=== PATIENT | male | born 1965 | race Caucasian/White ===

== ENCOUNTER 2017-02-17 06:37 | Observation (INO) | payer OTHER ==
--- NOTE | ~2017-02-17 | OP ---
Record Of Operation [facility] [address] [place]. [address] NAME: BARBARA MONTERO : 61 STATUS : ADM IN PAT#: [id number] AGE: 51 ADM/REG DATE : 02/17/17 MR#: [id number] REPORT SERV DATE: 02/17/17 DICTATED BY: WES GARCIA DATE: 02/17/17 REPORT STATUS : Draft TRANSCRIBED BY: MODL DATE: 02/17/17 DATE OF PROCEDURE: 02/17/2017 PTCA REPORT PROCEDURE: PTCA. INDICATION FOR THIS PROCEDURE: Acute coronary syndrome. PROCEDURE: The patient was brought emergently to the cardiac catheterization laboratory with ongoing chest pain, unrelieved by multiple doses of IV narcotics. Moderate IV sedation was administered. The patient was prepped and draped in usual sterile fashion. Adequate anesthesia was obtained over the right femoral vessels using lidocaine infiltration. Using Seldinger technique, an 8-Venezuelan sheath was placed in the right femoral artery. An 8 JL4 coronary guiding catheter was advanced to the left coronary ostium. Left coronary artery injections confirmed the presence of heavily calcified tandem lesions in the mid LAD of up to 90% in severity. A 0.014 Luge guidewire was passed into the distal LAD. Using a FineCross catheter, the Luge wire was exchanged for an extra-support RotaWire. Rotational atherectomy was then performed using a 1.5 mm amanda. The vessels then dilated with a 3.0/15 emerge balloon, and subsequently with a 3.0/20 NC emerge balloon at up to 18 atmospheres pressure for 15 seconds in duration. Using a GuideLiner for additional support, a 3.0/28 Synergy stent was then deployed at up to 15 atmospheres pressure for 15 seconds in duration. The stent was then dilated with a 3.0/20 NC emerge balloon at up to 20 atmospheres of pressure for 15 seconds in duration. Following removal of balloon and guidewire, final right coronary artery injections showed 0% residual stenosis with ALEXI grade 3 distal flow. The guiding catheter was removed. The sheath left in place. There were no apparent complications. TOTAL CONTRAST USED: 90 mL TOTAL RADIATION EXPOSURE: 956 mGy. ESTIMATED BLOOD LOSS: No significant blood loss occurred. IMPRESSION: Successful percutaneous coronary intervention of highly calcified mid LAD lesions using rotational atherectomy, balloon angioplasty, and placement of a drug-eluting stent. SS/ROSITA Wes Garcia M.D., F.A.CTeaC. / [id number] Record Of [address] [address] NAME: BARBARA MONTERO : 61 STATUS : ADM IN PAT#: [id number] AGE: 51 ADM/REG DATE : 02/17/17 MR#: [id number] REPORT SERV DATE: 02/17/17 DICTATED BY: WES GARCIA DATE: 02/17/17 REPORT STATUS : Draft TRANSCRIBED BY: ROSITA DATE: 02/17/17 CC: Wes Uribe M.D., [facility] ROSETTA Hernandez M.D.
--- NOTE | ~2017-02-17 | OP ---
Record Of Operation [facility] [address] [place]. [address] NAME: BARBARA MONTERO : 61 STATUS : REG REF PAT#: [id number] AGE: 51 ADM/REG DATE : 02/17/17 MR#: [id number] REPORT SERV DATE: 02/17/17 DICTATED BY: WES FONTAINE DATE: 02/17/17 REPORT STATUS : Draft TRANSCRIBED BY: MODL DATE: 02/17/17 DATE OF PROCEDURE: 02/17/2017 INDICATION: Accelerated angina/class 3 in a patient with known history of coronary artery disease, status post previous stents. PROCEDURE: Left heart catheterization, coronary arteriography, left ventriculography, PCI/PTCA of proximal/mid LAD. Cutting balloon/atherectomy of proximal/mid LAD. Unsatisfactory final result. The patient was referred to Dr. Garcia for rotablator evaluations. DESCRIPTION OF PROCEDURE: After informed consent was obtained and after verifying the positive Mihai's test. The patient was taken in a fasting state to the cardiac catheterization laboratory, where he was prepped and draped in sterile fashion. IV moderate sedation was obtained using intravenous Versed and fentanyl. The right radial region was anesthetized using 1% Xylocaine. The right radial artery was then entered using a front wall approach and cannulated with radial sheath. A 6-Albanian [place] catheter was then used to engage the left main coronary artery. It did not adequately engage and was exchanged for a 5-Albanian JL4 catheter which engaged the vessel. Serial angiograms were obtained. This catheter was then exchanged for a Ector right catheter, which did not adequately engage the right coronary artery. It was then exchanged for a JR-4 catheter which engaged the vessel. A 6-Albanian angled pigtail catheter was used across the aortic valve, at which time a left ventriculogram was performed. Results of diagnostic angiography as follows: HEMODYNAMICS: Aorta 135/100, with a mean pressure 118 mmHg. Left ventricle 135/10 with an end-diastolic pressure of 17 mmHg. CORONARY ANATOMY: Left Main coronary artery: The left main coronary artery arises normally from left coronary cusp. There was some mild calcification noted. There is no significant intraluminal stenosis. Left anterior descending artery: The left anterior descending artery arises normally from left main coronary artery. This vessel was heavily calcified in the proximal and mid segments. There was a long calcified lesion which starts immediately after the takeoff of the first diagonal branch that involves the takeoff of the second diagonal branch to 80%. Left circumflex artery: The left circumflex artery arises normally from left main coronary artery. This vessel was nondominant. This vessel gives off a first obtuse marginal artery which has luminal regularities to 40%. Right coronary artery: The right coronary artery arises normally from the right coronary cusp. This vessel was dominant. This vessel has a stent visible in the mid segment. This vessel was 100% occluded in the mid segment with some bridging collaterals noted. Significant filling of the distal right coronary artery was visualized via the left system. After the above findings it was decided to proceed with PCI and stenting of the proximal/mid Record Of Operation [address] [address] NAME: BARBARA MONTERO : 61 STATUS : REG REF PAT#: [id number] AGE: 51 ADM/REG DATE : 02/17/17 MR#: [id number] REPORT SERV DATE: 02/17/17 DICTATED BY: WES FONTAINE DATE: 02/17/17 REPORT STATUS : Draft TRANSCRIBED BY: ROSITA DATE: 02/17/17 LAD. A 6-Albanian Q4 guiding catheter was used with a [employer], ChoICE PT 0.014 x 182 cm extra support wire to cross the lesion. A Synergy 3.0 x 28 mm drug-eluting stent was then introduced, but would not cross through the calcified lesion. It was withdrawn and a [employer] Emerge 3.0 x 15 mm balloon was introduced and three overlapping inflations were performed at 6 atmospheres for 20 seconds each. The stent was then reintroduced, but would not cross. A sole GuideLiner was then introduced and with some difficulty advanced through the lesion. A [employer] 3.0 x 15 noncompliant balloon was then performed and three overlapping inflations were performed at 12 to 20 atmospheres for 25 to 65 seconds each. There continued to be a calcified 70% to 80% residual stenosis. This balloon was then withdrawn and a [employer], Flextome 3.0 x 15 mm cutting balloon was introduced and inflated to 12 atmospheres for 35 seconds. Repeat angiography revealed no significant reduction of the stenosis. It was decided at this point, that the patient would most likely be best served by rotablator. I have asked Dr. Garcia to evaluate the patient this afternoon. COMPLICATIONS: There were no apparent complications. CONCLUSIONS: 1. Multivessel coronary artery disease as described above. 2. 80% calcified proximal/mid LAD stenosis. No significant improvement following PCI/PTCA/cutting balloon. 3. The patient referred for rotablator evaluation per Dr. Garcia. SA/MODL Wes Fontaine M.D., [facility] / [id number] CC: Wes Fontaine M.D., [facility] STEVE FOURNIER M.D. Steven Stubblefield, M.D., F.A.C.C.
[~2017-02-17 06:37] MED LIST: ACCU5 PO; ACET500CAP PO; ALEVE220 MG PO; ALTA5 PO; ASABAYER PO; ATEN25 PO; AUG875 PO; BACDS PO; DEPO-TESTOS100 MG/ML IM; DIL2TAB PO; EFFIENT10 PO; FORTAMET500 MG PO; GLUCOPHXR PO; GLUCOTRO10 PO; HUMALOG SC; HUMALOGMIX SC; JANUMET1 TAB PO; KLONO1 PO; L20 PO; LANTUS SC; LANTUSCART SC; LIPITOR20 PO; LORTAB10 PO; MOBIC15 MG PO; MOBIC7.5 PO; NEUR300 PO; NEUR400 PO; PERCOCET 10/3251 TAB PO; PLAVIX PO; PROAIR HFA INH; PROVHFA INH; SENOKOTS PO; TESTOST CYP100 MG/ML IM; ZANTAC 150 PO; ZANTAC150 MG PO
[2017-02-17 07:28] LABS: BASOPHILS 0.7 %; BASOPHILS ABSOLUTE 0.08 10/3/uL (0.0-0.16); EOSINOPHILS 2.6 %; EOSINOPHILS ABSOLUTE 0.28 10/3/uL (0.0-0.53); HEMATOCRIT 43.3 % (40.0-51.0); HEMOGLOBIN 14.9 g/dL (13.6-17.8); IMMATURE GRANULOCYTES 0.4 %; IMMATURE GRANULOCYTES ABSOLUTE 0.04 10/3/uL (0.0-0.11); LYMPHOCYTES 34.6 %; LYMPHOCYTES ABSOLUTE 3.77 10/3/uL (0.67-4.30); MEAN CORPUS HGB CONC 34.4 g/dL (32.0-36.0); MEAN CORPUSCULAR HEMOGLOB 27.6 pg (26.0-34.0); MEAN CORPUSCULAR VOLUME 80.2 fL (80-100); MEAN PLATELET VOLUME 9.6 fL (9.2-13.0); MONOCYTES 6.7 %; MONOCYTES ABSOLUTE 0.73 10/3/uL (0.21-1.20); NEUTROPHILS ABSOLUTE 5.99 10/3/uL (2.02-8.40); PLATELET COUNT 278 10/3/uL (150-400); RBC DISTRIBUTION WIDTH 13.1 % (12.0-16.0); WHITE BLOOD CELLS 10.9 10/3/uL (4.5-10.5)
[2017-02-17 07:30] LABS: MANUAL DIFF NO %
[2017-02-17 07:43] LABS: BUN (BLOOD UREA NITROGEN) 13 MG/DL (6-23); CALCIUM, SERUM 9.2 MG/DL (8.5-10.4); CHLORIDE, SERUM 99 MMOL/L (96-112); CHOLESTEROL 190 MG/DL (< 200); CO2 (CARBON DIOXIDE) 23 MMOL/L (24-34); CREATININE 0.94 MG/DL (0.70-1.30); GFR AFRICAN AMERICAN 107 ML/MIN (>=60); GFR NON AFRICAN AMERICAN 92 ML/MIN (>=60); SODIUM, SERUM 133 MMOL/L (135-148)
[2017-02-17 07:44] LABS: CHOL/HDL RATIO(NOT ORDER) 4.6 (0-5); GLUCOSE, SERUM 524 MG/DL (60-99); HDL CHOLESTEROL 41 MG/DL (> 39); NON-HDL CHOLESTEROL 149 MG/DL (< 160); POTASSIUM, SERUM 4.4 MMOL/L (3.5-5.3); TRIGLYCERIDE 500 MG/DL (< 150)
[2017-02-17 17:02] LABS: CK-MB 20.7 NG/ML
[2017-02-17 17:03] LABS: CKMB INDEX (NOT ORD) 7.1
[2017-02-18 04:42] LABS: CK-MB 15.7 NG/ML
[2017-02-18 04:45] LABS: CKMB INDEX (NOT ORD) 4.3
[2017-02-18 04:47] LABS: TROPONIN I 8.6 NG/ML (<0.05)
[2017-02-18] MEDS ORDERED: BRILINTA90 MG PO (09:11)
[2017-07-05] MEDS ORDERED: KLONO2 PO (16:57)
== END 2017-02-18 12:45 | disposition home or self-care (01) ==
LOC: CORLMH 06:37 → SSU1 06:43
PROVIDERS: Internal Medicine Interventional Cardiology
DX: I25.118 Atherosclerotic heart disease of native coronary artery with other forms of angina pectoris (principal); I10 Essential (primary) hypertension; E78.2 Mixed hyperlipidemia; I24.9 Acute ischemic heart disease, unspecified; J44.9 Chronic obstructive pulmonary disease, unspecified; F41.0 Panic disorder [episodic paroxysmal anxiety]; E11.9 Type 2 diabetes mellitus without complications; K21.9 Gastro-esophageal reflux disease without esophagitis; Z87.891 Personal history of nicotine dependence; Z98.890 Other specified postprocedural states; Z79.899 Other long term (current) drug therapy; Z79.82 Long term (current) use of aspirin
CPT/HCPCS: 80048; 80061; 82550; 82553; 82962; 84484; 85025; 92920; 93005; 93458; 99152; 99153; A9270-GY; C1713; C1724; C1725; C1769; C1874; C1887; C1894; C9602; G0378; J0583; J1170; J1200; J2250; J3010; Q9967

== ENCOUNTER 2017-02-21 13:11 | Inpatient (IN) | payer OTHER ==
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
[~2017-02-21 13:11] MED LIST changes: +BRILINTA90 MG PO
[2017-02-21 13:49] LABS: BASOPHILS 0.7 %; BASOPHILS ABSOLUTE 0.08 10/3/uL (0.0-0.16); EOSINOPHILS 2.6 %; HEMATOCRIT 38.4 % (40.0-51.0); HEMOGLOBIN 13.3 g/dL (13.6-17.8); IMMATURE GRANULOCYTES ABSOLUTE 0.12 10/3/uL (0.0-0.11); LYMPHOCYTES 24.9 %; LYMPHOCYTES ABSOLUTE 2.86 10/3/uL (0.67-4.30); MANUAL DIFF NO %; MEAN CORPUS HGB CONC 34.6 g/dL (32.0-36.0); MEAN CORPUSCULAR HEMOGLOB 27.5 pg (26.0-34.0); MEAN CORPUSCULAR VOLUME 79.5 fL (80-100); MEAN PLATELET VOLUME 9.7 fL (9.2-13.0); MONOCYTES 5.7 %; MONOCYTES ABSOLUTE 0.66 10/3/uL (0.21-1.20); NEUTROPHILS 65.1 %; NEUTROPHILS ABSOLUTE 7.47 10/3/uL (2.02-8.40); PLATELET COUNT 312 10/3/uL (150-400); RBC DISTRIBUTION WIDTH 13.2 % (12.0-16.0); RED CELL COUNT 4.83 10/6/uL (4.7-6.1); WHITE BLOOD CELLS 11.5 10/3/uL (4.5-10.5)
[2017-02-21 14:05] LABS: BUN (BLOOD UREA NITROGEN) 15 MG/DL (6-23); CALCIUM, SERUM 8.7 MG/DL (8.5-10.4); CHLORIDE, SERUM 101 MMOL/L (96-112); CO2 (CARBON DIOXIDE) 21 MMOL/L (24-34); CREATININE 0.89 MG/DL (0.70-1.30); GFR AFRICAN AMERICAN 113 ML/MIN (>=60); GFR NON AFRICAN AMERICAN 98 ML/MIN (>=60); POTASSIUM, SERUM 4.2 MMOL/L (3.5-5.3); SODIUM, SERUM 135 MMOL/L (135-148)
[2017-02-21 14:08] LABS: CHEST PAIN PROFILE TAT 0 Hrs 01 Mins; GLUCOSE, SERUM 413 MG/DL (60-99); TROPONIN I 0.64 NG/ML (<0.05)
[2017-02-21 16:34] LABS: CREATININE 0.6 MG/DL (0.70-1.30)
[2017-02-21] MEDS ORDERED: ALBUTEROL5 INH (17:21)
[2017-02-21] MEDS ORDERED: ASAB PO (17:22)
[2017-02-21] MEDS ORDERED: ATEN25 PO (17:22)
[2017-02-21] MEDS ORDERED: PROVHFA PO (17:22)
[2017-02-21] MEDS ORDERED: BRILINTA90 MG PO (17:22)
[2017-02-21] MEDS ORDERED: ALTA5 PO (17:24)
[2017-02-21] MEDS ORDERED: FORTAMET1000 MG PO (17:24)
[2017-02-21] MEDS ORDERED: HUMALOGMIX SC ×3 (17:27→17:40)
[2017-02-21] MEDS ORDERED: PERCOCET 10/3251 TAB PO (17:28)
[2017-02-21] MEDS ORDERED: LANTUSCART SC ×2 (17:28)
[2017-02-21] MEDS ORDERED: NEUR400 PO (17:29)
[2017-02-21] MEDS ORDERED: FLOMAX4 PO (17:30)
[2017-02-21] MEDS ORDERED: LIPITOR40 PO (17:30)
[2017-02-21] MEDS ORDERED: ALEVE220 MG PO (17:30)
[2017-02-21] MEDS ORDERED: KLONO1 PO ×2 (17:30)
[2017-02-21] MEDS ORDERED: GLUCOTRO10 PO (17:31)
[2017-02-21] MEDS ORDERED: RANITIDINE300 MG PO (17:31)
[2017-02-21] MEDS ORDERED: [UNRECOGNIZED DRUG - OTHER] PO (17:33)
[2017-02-21 20:22] LABS: ASCORBIC ACID (UR NOT ORDER) NEG (NEG); BILIRUBIN, URINE NEGATIVE (NEG); KETONE, URINE NEGATIVE (NEG); LEUKOCYTE ESTERASE(NOT OR NEG (NEG); WBC (NOT ORDERED) (RFLEX) 1 (0-5)
[2017-02-21 21:20] LABS: CREATININE (RANDOM URINE) 70.1 MG/DL; MICROALBUMIN, RANDOM URINE 2.2 MG/DL
[2017-02-21 21:54] LABS: CK-MB 153.8 NG/ML; CKMB INDEX (NOT ORD) 7.7
[2017-02-22 04:57] LABS: BASOPHILS 0.3 %; BASOPHILS ABSOLUTE 0.05 10/3/uL (0.0-0.16); EOSINOPHILS 0.8 %; EOSINOPHILS ABSOLUTE 0.15 10/3/uL (0.0-0.53); HEMOGLOBIN 13.3 g/dL (13.6-17.8); IMMATURE GRANULOCYTES 0.5 %; LYMPHOCYTES 13.3 %; LYMPHOCYTES ABSOLUTE 2.43 10/3/uL (0.67-4.30); MEAN CORPUS HGB CONC 34.1 g/dL (32.0-36.0); MEAN CORPUSCULAR HEMOGLOB 27.3 pg (26.0-34.0); MEAN CORPUSCULAR VOLUME 80.1 fL (80-100); MEAN PLATELET VOLUME 9.5 fL (9.2-13.0); MONOCYTES 5.9 %; MONOCYTES ABSOLUTE 1.09 10/3/uL (0.21-1.20); NEUTROPHILS 79.2 %; PLATELET COUNT 293 10/3/uL (150-400); RBC DISTRIBUTION WIDTH 13.4 % (12.0-16.0); RED CELL COUNT 4.87 10/6/uL (4.7-6.1)
[2017-02-22 04:58] LABS: MANUAL DIFF NO %; WHITE BLOOD CELLS 18.3 10/3/uL (4.5-10.5)
[2017-02-22 05:20] LABS: CALCIUM, SERUM 8.9 MG/DL (8.5-10.4); CHLORIDE, SERUM 102 MMOL/L (96-112); CHOL/HDL RATIO(NOT ORDER) 5.1 (0-5); CHOLESTEROL 185 MG/DL (< 200); CK-MB 83.5 NG/ML; CO2 (CARBON DIOXIDE) 19 MMOL/L (24-34); CPK 1416 U/L (0-200); CREATININE 0.76 MG/DL (0.70-1.30); GFR AFRICAN AMERICAN 121 ML/MIN (>=60); GFR NON AFRICAN AMERICAN 104 ML/MIN (>=60); HDL CHOLESTEROL 36 MG/DL (> 39); NON-HDL CHOLESTEROL 149 MG/DL (< 160); POTASSIUM, SERUM 3.9 MMOL/L (3.5-5.3); SODIUM, SERUM 136 MMOL/L (135-148)
[2017-02-22 05:22] LABS: BUN (BLOOD UREA NITROGEN) 11 MG/DL (6-23); CKMB INDEX (NOT ORD) 5.9; GLUCOSE, SERUM 264 MG/DL (60-99); LDL CHOLESTEROL 83 MG/DL (< 130); TRIGLYCERIDE 334 MG/DL (< 150)
[2017-02-22 13:40] LABS: CK-MB 41.8 NG/ML; CKMB INDEX (NOT ORD) 4.9
[2017-02-22 19:43] LABS: BUN (BLOOD UREA NITROGEN) 11 MG/DL (6-23); CALCIUM, SERUM 9.2 MG/DL (8.5-10.4); CHLORIDE, SERUM 98 MMOL/L (96-112); CO2 (CARBON DIOXIDE) 25 MMOL/L (24-34); CREATININE 0.84 MG/DL (0.70-1.30); GFR AFRICAN AMERICAN 116 ML/MIN (>=60); GFR NON AFRICAN AMERICAN 100 ML/MIN (>=60); GLUCOSE, SERUM 221 MG/DL (60-99); POTASSIUM, SERUM 3.9 MMOL/L (3.5-5.3); SODIUM, SERUM 134 MMOL/L (135-148)
[2017-02-22 20:11] LABS: ALLENS TEST Pos; BE (BASE EXCESS) -1.5 MEQ/L (0 +/- 2.5); CARBOXYHEMOGLOBIN 0.4 % (0-3); HCO3 (ACTUAL BICARBONATE) 21.2 MEQ/L (23-27); INSTRUMENT SERIAL # 35151; METHEMOGLOBIN 0.6 % (0-3); O2 CONTENT 18.8 VOL% (18-24); OPERATOR ID 13415; PCO2 (CO2 TENSION) 30 MMHG (35-45); PO2 (O2 TENSION) 84 MMHG (79-93); SAMPLE Arterial; pH 7.46 (7.37-7.43)
[2017-02-23 05:22] LABS: CREATININE 0.79 MG/DL (0.70-1.30)
[2017-02-25] MEDS ORDERED: ATV1 PO (12:56)
[2017-07-05] MEDS ORDERED: KLONO2 PO (16:57)
== END 2017-02-25 15:05 | disposition home or self-care (01) | DRG 246 ==
LOC: SSU2 13:11 → CCU 14:50 → 6NO 02-23 09:53
PROVIDERS: Internal Medicine Cardiovascular Disease; Internal Medicine Interventional Cardiology
PROC: 027034Z Dilation of Coronary Artery, One Artery with Drug-eluting Intraluminal Device, Percutaneous Approach (ICD-10-PCS; principal; 2017-02-21)
PROC: 4A023N7 Measurement of Cardiac Sampling and Pressure, Left Heart, Percutaneous Approach (ICD-10-PCS; 2017-02-21)
PROC: B2111ZZ Fluoroscopy of Multiple Coronary Arteries using Low Osmolar Contrast (ICD-10-PCS; 2017-02-21)
PROC: B2151ZZ Fluoroscopy of Left Heart using Low Osmolar Contrast (ICD-10-PCS; 2017-02-21)
DX: T82.855A Stenosis of coronary artery stent, initial encounter (principal); I21.09 ST elevation (STEMI) myocardial infarction involving other coronary artery of anterior wall; Z68.41 Body mass index [BMI] 40.0-44.9, adult; E11.42 Type 2 diabetes mellitus with diabetic polyneuropathy; E11.65 Type 2 diabetes mellitus with hyperglycemia; I25.10 Atherosclerotic heart disease of native coronary artery without angina pectoris; I25.5 Ischemic cardiomyopathy; E78.5 Hyperlipidemia, unspecified; E66.01 Morbid (severe) obesity due to excess calories; J44.9 Chronic obstructive pulmonary disease, unspecified; F41.9 Anxiety disorder, unspecified; F43.10 Post-traumatic stress disorder, unspecified; E78.00 Pure hypercholesterolemia, unspecified; I10 Essential (primary) hypertension; I25.2 Old myocardial infarction; I25.84 Coronary atherosclerosis due to calcified coronary lesion; F17.210 Nicotine dependence, cigarettes, uncomplicated; Z86.73 Personal history of transient ischemic attack (TIA), and cerebral infarction without residual deficits; Z82.49 Family history of ischemic heart disease and other diseases of the circulatory system; Z80.1 Family history of malignant neoplasm of trachea, bronchus and lung; Z88.8 Allergy status to other drugs, medicaments and biological substances; Z98.890 Other specified postprocedural states; Z88.5 Allergy status to narcotic agent; Z79.4 Long term (current) use of insulin
CPT/HCPCS: 36600; 71010; 80048; 80061; 81001; 82043; 82550; 82553; 82565; 82805; 82962; 83036; 83735; 84132; 84295; 84443; 84484; 85025; 85610; 85730; 87641; 93005; 93458; 94640; 99152; 99153; A9270-GY; C1725; C1769; C1874; C1894; C8929; C9606; J0583; J1170; J1200; J2250; J2405; J3010; Q9957; Q9967